=== PATIENT | female | born 1975 ===

== ENCOUNTER 2025-02-20 12:49 | Day surgery (SDC) | payer BC, SELFPAY ==
[2025-02-13 15:07] VITALS: BMI 23.1
[2025-02-14 08:24] VITALS: BMI 23.1
[2025-02-20] VITALS (8 sets, daily range): BP systolic 94–117; BP diastolic 57–72; PULSE 57–80; RESP 10–16; TEMP 36.2–36.6; O2SAT 97–100; BMI 23.1
--- NOTE | 2025-02-20 | PATH_ITS ---
[facility] [place] Accession Number: [id number] No. of containers..02 Tissue . 01 Material submitted: . PART A: endometrium - ENDOMETRIAL CURETTINGS PART B: endocervix - ENDOCERVICAL CURETTINGS . 01 Diagnosis: A. ENDOMETRIUM, CURETTINGS: Features suggestive of benign endometrial polyp. Secretory-type endometrium. No endometrioid intraepithelial neoplasia and no malignancy. . B. ENDOCERVIX, CURETTINGS: Benign endocervical tissue. Scant inactive-type endometrium. Scant unremarkable squamous epithelium. No dysplasia or malignancy. MRV 02/24/2025 1600 Local . 01 Electronically signed: . Kathy Orosco MD, Pathologist NPI- [id number] . 01 Gross description: . A. Received in formalin with two identifiers and endometrial curettings are multiple barton soft tissue fragments admixed in mucohemorrhagic material received on friable Telfa paper aggregating to 3.2 x 2.2 x 0.3 cm. Filtered and submitted entirely in A1. B. Received in formalin with two identifiers and endocervical curettings are multiple barton soft tissue fragments admixed with mucohemorrhagic material received on friable Telfa paper aggregating to 2.5 x 1.3 x 0.2 cm. Filtered and submitted entirely in B1. ([id number]) /MRV 02/21/2025 1620 Local . 01 Pathologist provided ICD-10: N84.0 . 01 CPT . 588428, [id number] Specimen Comment: A courtesy copy of this report has been sent to [phone] Performed at: [address] [address], [place], [place] [id number] MD Arturo Duarte MD Phone: [phone]
--- NOTE | 2025-02-20 13:33 | PM.GYNHP.1 ---
History of Present Illness History of Present Illness Reason for admission: vaginal bleeding Narrative: Mee is a 49-year-old , LMP last week, who presents with recent development of heavier and longer menses for evaluation. Menarche occurred at age 13 and she has had regular predictable periods throughout her reproductive life. Contraception is by vasectomy. Patient has however noticed that her menses are becoming more uncomfortable with bright red bleeding and clots lasting 5-6 days with 2 days of extremely heavy bleeding which is disruptive to her life. She denies intermenstrual bleeding or postcoital bleeding. Patient relates that her mother had a hysterectomy in her late 30s for abnormal bleeding and some sort of tumor which she believes was benign. Patient's primary care provider ordered a pelvic ultrasound which was performed at [facility] on 12/30 2024 which showed the uterus to be retroverted measuring 8.8 x 5.2 x 6.5 cm. The endometrium is noted to be thickened within the fundal region where there is a focal soft tissue mass measuring 2.1 x 0.9 x 4.6 cm. Underlying possible vascular stalk is noted. Findings are concerning for polyp or endometrial neoplasm. Right ovary measures 2.8 x 1.4 x 12.4 cm with a simple adjacent cyst measuring 1.0 cm. Left ovary is 2.6 x 1.5 x 2.5 cm in otherwise unremarkable. Within the vaginal canal there was a soft tissue lesion which is hyperechoic without internal color Doppler flow that appears to be in the posterior wall just past the introitus. It measures 0.9 x 0.7 x 1.0 cm. It has homogeneous internal hyperechogenicity and a smooth peripheral wall. Although the ultrasound report suggested it may be a Bartholin's gland cyst, the finding is more strongly suggestive of an inclusion cyst from her previous vaginal deliveries. We had an extended discussion regarding the possible causes of the endometrial mass found on ultrasound as well as the menorrhagia she has been experiencing lately. Endometrial sampling would not resolve/remove the endometrial mass and provide only partial results therefore after discussion with the patient, she expresses a desire to move forward with hysteroscopy, probable polypectomy, and dilation and curettage of the uterus. She presents today for her scheduled surgery. [facility] Social History household members: spouse Smoking Status: Never smoker alcohol intake: current Meds Home Medications and Allergies Home Medications Medication Instructions Recorded Confirmed Type sertraline 50 mg tablet 25 mg PO DAILY 01/08/25 02/20/25 History Allergies Allergy/AdvReac Type Severity Reaction Status Date / Time pregabalin [From Lyrica] AdvReac Verified 02/20/25 13:23 Review of Systems Review of Systems Narrative: Problem-specific ROS positives included in HPI Exam Const General: cooperative and comfortable Nutritional Appearance: average body habitus Orientation: alert and oriented x3 HENMT Head: normal to inspection, atraumatic and abrasion Ears: hearing grossly normal bilaterally Face and sinus: face symmetric Eyes General: appearance normal, both eyes and all related structures Conjunctivae: conjunctivae normal Sclera: sclerae normal EOM: EOM intact bilaterally Neck Neck: normal visual inspection Resp Effort & Inspection: normal respiratory effort and able to speak in complete sentences Auscultation: clear to auscultation bilaterally Cardio Rate: regular rate Rhythm: regular rhythm Heart Sounds: S1 normal, S2 normal and no murmurs GI Inspection: normal to inspection Palpation: soft and no hepatosplenomegaly External Female Exam: other (No significant bleeding noted) Extrem General: no calf tenderness Psych Appearance: grossly normal Mental Status: mental status grossly normal Speech and Movement: speech and movement normal Mood: congruent mood Affect: normal affect Attitude: cooperative Thought Process: normal Thought Content: normal Judgment: judgment good Assessment & Plan Assessment and plan (1) Menorrhagia with regular cycle: Status: Acute (2) Endometrial mass: Status: Acute Plan Patient counseled regarding on alternatives, risks, benefits, and potential complications associated with hysteroscopy with polypectomy, and dilation and curettage of the uterus. With full understanding of the above, a written consent was executed, signed, and witnessed this date. Time-Based Coding :: [TOTAL MINUTES] spent with patient and on the chart (including review of chart, obtaining history, exam, reviewing outside data, placing orders, documenting exam and treatment plan, and counseling patient) on [DATE].
--- NOTE | 2025-02-20 13:40 | PM.PREOP ---
Pre-operative Note COVID-19 COVID-19 status: Not tested Interval Note History & Physical reviewed/Exam performed by Physician: Yes Changes to H&P: No
[2025-02-20] MEDS: LACTATED RINGERS 1,000 ML 42 ML IV (13:42)
[2025-02-20] MEDS: ACETAMINOPHEN 325 MG TABLET 975 MG PO (13:43)
--- NOTE | 2025-02-20 14:38 | SUR.OPER ---
Lithotomy on padded OR bed, head on pillow, arms secured on padded arm boards at <90 degrees abduction. Legs secured in padded yellow fins stirrups.
[2025-02-20] MEDS: LACTATED RINGERS 1,000 ML 999 ML IV (14:58)
--- NOTE | 2025-02-20 15:00 | PM.GYNOP.1 ---
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 Menarche occurred at age 13 and she has had regular predictable periods throughout her reproductive life. Contraception is by vasectomy. Patient has however noticed that her menses are becoming more uncomfortable with bright red bleeding and clots lasting 5-6 days with 2 days of extremely heavy bleeding which is disruptive to her life. She denies intermenstrual bleeding or postcoital bleeding. Patient relates that her mother had a hysterectomy in her late 30s for abnormal bleeding and some sort of tumor which she believes was benign. Patient's primary care provider ordered a pelvic ultrasound which was performed at [facility] on 12/30 2024 which showed the uterus to be retroverted measuring 8.8 x 5.2 x 6.5 cm. The endometrium is noted to be thickened within the fundal region where there is a focal soft tissue mass measuring 2.1 x 0.9 x 4.6 cm. Underlying possible vascular stalk is noted. Findings are concerning for polyp or endometrial neoplasm. Right ovary measures 2.8 x 1.4 x 12.4 cm with a simple adjacent cyst measuring 1.0 cm. Left ovary is 2.6 x 1.5 x 2.5 cm in otherwise unremarkable. Within the vaginal canal there was a soft tissue lesion which is hyperechoic without internal color Doppler flow that appears to be in the posterior wall just past the introitus. It measures 0.9 x 0.7 x 1.0 cm. It has homogeneous internal hyperechogenicity and a smooth peripheral wall. Although the ultrasound report suggested it may be a Bartholin's gland cyst, the finding is more strongly suggestive of an inclusion cyst from her previous vaginal deliveries. We had an extended discussion regarding the possible causes of the endometrial mass found on ultrasound as well as the menorrhagia she has been experiencing lately. Endometrial sampling would not resolve/remove the endometrial mass and provide only partial results therefore after discussion with the patient, she expresses a desire to move forward with hysteroscopy, probable polypectomy, and dilation and curettage of the uterus. She presents today for her scheduled surgery. Surgeon: Jaime Ellison Anesthesia Type: General Operative Notes Findings: The endometrium is thinned and somewhat shaggy in areas but there were no focal lesions. Instead the patient has a bicornuate uterus with the tubal ostia seen in the left horn but not the right horn. There is a stage 1-2 cystocele noted and stage 1-2 uterovaginal prolapse is noted. At the right side of the vaginal introitus immediately inside of the hymeneal ring, there is a 1 cm epidermal inclusion cyst as a probable sequelae of childbirth. Closure Type: not applicable Specimen(s): endometrial curettings and other (Endocervical curettings) Estimated blood loss (mL): 5 Blood products transfused: none Procedure in detail: With the patient under general LMA in the modified dorsal lithotomy position, the perineum, vagina, and lower abdomen were prepped and draped in the usual fashion for hysteroscopy with endometrial ablation. A pre-surgical safety time-out was then taken in accordance with [facility] Main OR protocols. A bivalve speculum was inserted in the vagina and the cervix visualized. The anterior lip of the cervix was grasped with a single-tooth tenaculum and the endocervical canal was then dilated to 6 mm diameter. Hysteroscope was placed through the endocervical canal into the endometrial cavity and the cavity was visualized. There were no localized abnormalities within the endometrial cavity and the endometrium itself was unremarkable. The hysteroscope was then withdrawn and a fractional dilation and curettage was accomplished with separate pathologic specimen submitted for the endometrial and endocervical curettings. The tenaculum was then removed from the anterior lip of the cervix and no bleeding was encountered. The speculum was then removed from the vagina and the patient awakened from anesthesia. She was then transferred to the PACU for a period of observation and recovery having tolerated the procedure well. Complications: none Post-operative Condition: stable Disposition: PACU Plan for aftercare: Routine post-op care.
[2025-02-20] MEDS: KETOROLAC 30 MG/ML VIAL IV (15:17)
== END 2025-02-20 16:15 | disposition home or self-care (01) ==
PROVIDERS: PCP Student in an Organized Health Care Education/Training Program; Referring Provider Student in an Organized Health Care Education/Training Program; Visit Provider Obstetrics & Gynecology
PROC: 0UDB8ZZ Extraction of Endometrium, Via Natural or Artificial Opening Endoscopic (ICD-10-PCS; CPT 58558; principal; 2025-02-20 14:45)
DX: N93.9 Abnormal uterine and vaginal bleeding, unspecified (principal); Q51.3 Bicornate uterus; N89.8 Other specified noninflammatory disorders of vagina; N81.2 Incomplete uterovaginal prolapse
CPT/HCPCS: 58558; J1100; J1885; J2405; J2704; J3010